=== PATIENT | female | born 1975 | race Caucasian/White ===

== ENCOUNTER 2018-09-14 20:14 | Emergency (ER) | payer OTHER, SELFPAY ==
[2018-09-14 20:14] VITALS: BP 167/89; PULSE 77; RESP 17; TEMP 37.1; O2SAT 100
[2018-09-14 20:15] VITALS: BP 167/89; PULSE 75; RESP 16; TEMP 37.1; O2SAT 100; BMI 40.8
--- NOTE | 2018-09-14 22:46 | ED.VISSUMM ---
- ER Visit Summary Date of Service: 09/14/18 Chief Complaint: Abdominal pain History of Present Illness: The patient is a 43 F who presents with abdominal pain. Is been present for about 3 days. She describes it as pressure-like. It is mild. She noticed that her pants seem to be tight. She then noticed a sensitive spot at the site of an old cholecystectomy scar and some surrounding redness. She also noted some blood-tinged drainage when she put a Q-tip in her umbilicus. She denies systemic symptoms such as fevers chills nausea vomiting. Physical Examination: Afebrile vitals are normal Heart regular rate and rhythm Lungs are clear There is about 6 cm of erythema which appears to be centered around a surgical scar just superior to the umbilicus when placing a cotton tip applicator in the umbilicus there is scant purulent drainage I do not appreciate any fluctuance she only has minimal tenderness the rest of the abdomen is soft nontender. Test Results: Not indicated Emergency Department Course and Treatment: Patient's findings are suggestive of abdominal wall abscess. The remainder of abdominal exam is benign I am not concerned about intra-abdominal process based on her current presentation. She has no systemic symptoms. I would defer on imaging at this time however she was given clear return precautions of specific signs and symptoms to monitor for and understands to return for new or worsening symptoms for reevaluation. She was placed on Keflex and Bactrim. She was advised to follow-up with her primary care physician and was discharged home. Treatment Plan: [] Disposition: Discharge Impression: Subcutaneous abdominal wall abscess This note was generated with [employer] dictation software. It may contain incorrect words, spelling, and punctuation that were not noted in review of the chart prior to signing ED Disposition - Plan for ED Patient: Referrals: Santy Zazueta DO [Primary Care Provider] -
--- NOTE | 2018-09-14 22:50 | ED.DEP ---
ED Disposition - Plan for ED Patient: Instructions: ED Staph Infec Abx Tx Only Prescriptions: Cephalexin [Keflex] 500 mg PO Q6 #40 cap Smz/Tmp Ds [Bactrim Ds] 1 tab PO BID #14 tab Referrals: Santy Zazueta DO [Primary Care Provider] -
[2018-09-14 23:06] VITALS: BP 146/85; PULSE 79; RESP 16; O2SAT 100
== END 2018-09-14 23:07 | disposition home or self-care (01) ==
PROVIDERS: Emergency Provider Emergency Medicine; Family Provider Student in an Organized Health Care Education/Training Program; PCP Student in an Organized Health Care Education/Training Program
DX: L02.211 Cutaneous abscess of abdominal wall (principal); I10 Essential (primary) hypertension; Z90.49 Acquired absence of other specified parts of digestive tract
CPT/HCPCS: 99282